=== PATIENT | male | born 1970 | race African-American/Black ===

== ENCOUNTER 2019-04-20 15:21 | Emergency (ER) | payer MEDICAID ==
[~2019-04-20] VITALS: Ht 170.2 cm; Wt 65.9 kg
[2019-04-20 15:23] VITALS: Ht 170.2 cm; Wt 65.9 kg
[2019-04-20] MEDS ORDERED: CYCLOBENZAPRINE10 MG PO (15:41)
[2019-04-20 16:43] VITALS: BP 124/85
== END 2019-04-20 16:43 | disposition home or self-care (01) ==
LOC: D.ER 15:21
DX: S16.1XXA Strain of muscle, fascia and tendon at neck level, initial encounter (principal); V43.52XA Car driver injured in collision with other type car in traffic accident, initial encounter; Y93.89 Activity, other specified; Y92.410 Unspecified street and highway as the place of occurrence of the external cause; M47.892 Other spondylosis, cervical region